=== PATIENT | female | born 1945 | race Caucasian/White ===

== ENCOUNTER 2024-12-30 15:29 | Inpatient (IN) | payer MEDICARE ==
[~2024-12-30] VITALS: Ht 154.9 cm; Wt 79.4 kg
[2024-12-30] MEDS ORDERED: LIDO1ADH82 TP (15:49)
[2024-12-30] MEDS ORDERED: ESTR42.53 VG (15:49)
[2024-12-30] MEDS ORDERED: ATOR40TA PO (15:49)
[2024-12-30] MEDS ORDERED: CALC500T89 PO (15:49)
[2024-12-30] MEDS ORDERED: ACET-2605 PO (15:49)
[2024-12-30] MEDS ORDERED: ESCI10TA PO (15:49)
[2024-12-30] MEDS ORDERED: UBID200C35 PO (15:49)
[2024-12-30] MEDS ORDERED: SODI45SP5 EA NOSTRIL ×2 (15:49→18:20)
[2024-12-30 16:00] VITALS: BP 150/78
[2024-12-30 16:02] LABS: PLATELET COUNT (AUTO) 184 K/uL (179-408); RED BLOOD CELL COUNT(AUTO) 4.41 MIL/uL (3.63-4.92); RED CELL DISTRIBUTION WIDTH 15.0 % (12.3-17.7); WHITE BLOOD COUNT (AUTO) 6.5 K/uL (3.8-11.8)
[2024-12-30 16:09] LABS: CREATININE 0.7 mg/dL (0.6-1.3); SODIUM SERUM 141 mmol/L (136-145); UREA NITROGEN, BLOOD 23 mg/dL (7-18)
[2024-12-30 16:15] LABS: ETHANOL < 3 MG/DL (0-10)
[2024-12-30 16:28] LABS: ASPARTATE AMINOTRANSFERASE 23 U/L (15-37); TOTAL PROTEIN, SERUM 7.0 g/dL (6.4-8.2)
[2024-12-30] MEDS ORDERED: CEFTRIAXONE /D5W 50ML IVPB **ER PYXIS IV ONE ×2 (17:10→17:17)
[2024-12-30] MEDS ORDERED: AZITHROMYCIN 250 MG TABLET ONE (17:10)
[2024-12-30] MEDS: AZITHROMYCIN 250 MG TABLET PO ONE (17:26)
[2024-12-30 18:15] VITALS: BP 139/68; TEMP 99.1; O2SAT 97
[2024-12-30] MEDS ORDERED: CALC200T42 PO (18:16)
[2024-12-30] MEDS ORDERED: GEMTESA 75 MG PO (18:18)
[2024-12-30] MEDS ORDERED: LOPE2TAB25 PO (18:21)
[2024-12-30] MEDS ORDERED: GUAI-1197 PO (18:21)
[2024-12-30 19:02] LABS: *BILIRUBIN,URIN NEGATIVE (NEGATIVE); *CLARITY,URINE CLEAR (CLEAR); *COLOR,URINE YELLOW (YELLOW); *KETONES,URINE NEGATIVE (NEGATIVE); *PROTEIN,URINE TRACE (NEGATIVE); *UROBILINOGEN,URINE 0.2 E.U./dl (NORMAL); LEUKOCYTE ESTERASE ,URINE 1+ (NEGATIVE); NITRITE, URINE NEGATIVE (NEGATIVE); UGLUCOSE NEGATIVE (NEGATIVE)
[2024-12-30 19:34] LABS: *BLOOD, URINE NEGATIVE (NEGATIVE)
[2024-12-30 19:41] LABS: *AMPHETAMINE, URINE NEGATIVE (NEGATIVE); *BARBITURATE, URINE NEGATIVE (NEGATIVE); *BENZODIAZEPINE, URINE NEGATIVE (NEGATIVE); *CANNABINOID, URINE NEGATIVE (NEGATIVE); *COCCAINE, URINE NEGATIVE (NEGATIVE); *OPIATE, URINE NEGATIVE (NEGATIVE); *PHENCYCLIDINE SCREEN,URINE NEGATIVE (NEGATIVE); FENTANYL, URINE POSITIVE (NEGATIVE)
[2024-12-30 19:52] VITALS: BP 162/70; TEMP 97.5; O2SAT 96
[2024-12-30] MEDS ORDERED: ONDANSETRON 4 MG/2 ML VIAL IV PRN (21:15)
[2024-12-30] MEDS ORDERED: MAGNESIUM HYDROXIDE 30 ML LIQUID UDC PO PRN (21:15)
[2024-12-30] MEDS ORDERED: REMEDY ESSENTIAL ZINC PASTE 113 GM TP PRN (21:15)
[2024-12-30] MEDS: IV 1/2NS 1000 ML 1,000 ML IV PRN (22:02)
[2024-12-30] MEDS: ENOXAPARIN SODIUM 40 MG/0.4 ML DISP.SYRIN SQ SCH (22:03)
[2024-12-31] VITALS (7 sets, daily range): BP systolic 105–150; BP diastolic 48–75; TEMP 97.6–98.8; O2SAT 92–96
[2024-12-31 06:40] LABS: PLATELET COUNT (AUTO) 180 K/uL (179-408); RED BLOOD CELL COUNT(AUTO) 4.37 MIL/uL (3.63-4.92); RED CELL DISTRIBUTION WIDTH 14.9 % (12.3-17.7); WHITE BLOOD COUNT (AUTO) 6.9 K/uL (3.8-11.8)
[2024-12-31 06:56] LABS: CREATININE 0.6 mg/dL (0.6-1.3); SODIUM SERUM 139 mmol/L (136-145); UREA NITROGEN, BLOOD 16 mg/dL (7-18)
[2024-12-31] MEDS: PANTOPRAZOLE SODIUM 40 MG TABLET.DR PO SCH (07:04)
[2024-12-31] MEDS: ACETAMINOPHEN 325 MG TABLET PO PRN (08:29)
[2024-12-31] MEDS ORDERED: CEFTRIAXONE 500 MG VIAL IV SCH (09:00)
[2024-12-31] MEDS ORDERED: NORMAL SALINE NASAL 45 ML BOTTLE NS PRN (18:15)
[2024-12-31] MEDS ORDERED: GUAIFENESIN SUGAR FREE 100 MG/5 ML UDC PO PRN (18:15)
[2024-12-31] MEDS ORDERED: LOPERAMIDE HCL 2 MG CAPSULE PO PRN (20:30)
[2024-12-31] MEDS: ATORVASTATIN 40 MG TABLET PO SCH (20:34)
[2025-01-01 05:37] VITALS: BP 132/63; TEMP 98; O2SAT 93
[2025-01-01 06:35] LABS: PLATELET COUNT (AUTO) 163 K/uL (179-408); RED BLOOD CELL COUNT(AUTO) 4.20 MIL/uL (3.63-4.92); RED CELL DISTRIBUTION WIDTH 14.8 % (12.3-17.7); WHITE BLOOD COUNT (AUTO) 5.4 K/uL (3.8-11.8)
[2025-01-01 06:46] LABS: CREATININE 0.6 mg/dL (0.6-1.3); SODIUM SERUM 140 mmol/L (136-145); UREA NITROGEN, BLOOD 10 mg/dL (7-18)
[2025-01-01 07:55] VITALS: BP 144/58; TEMP 98; O2SAT 93
[2025-01-01] MEDS: ESCITALOPRAM OXALATE 10 MG TABLET PO SCH (08:25)
[2025-01-01] MEDS ORDERED: UBIDECARENONE 200 MG PO SCH (09:00)
[2025-01-01] MEDS ORDERED: GEMTESA 75 MG PO SCH (09:00)
[2025-01-01] MEDS ORDERED: CALCIUM CITRATE 950MG (=200 MG ELEMENTAL CALCIUM) TAB PO SCH ×2 (09:00)
[2025-01-01 11:52] VITALS: BP 122/56; TEMP 98; O2SAT 96
[2025-01-01 15:20] VITALS: BP 149/66; TEMP 97.9; O2SAT 96
[2025-01-01 19:37] VITALS: BP 125/65; TEMP 98.6; O2SAT 96
[2025-01-01 23:16] VITALS: BP 130/58; TEMP 97.9; O2SAT 92
[2025-01-02 05:29] VITALS: BP 132/52; TEMP 98.2; O2SAT 95
[2025-01-02 07:26] LABS: PLATELET COUNT (AUTO) 169 K/uL (179-408); RED BLOOD CELL COUNT(AUTO) 4.29 MIL/uL (3.63-4.92); RED CELL DISTRIBUTION WIDTH 14.6 % (12.3-17.7); WHITE BLOOD COUNT (AUTO) 5.6 K/uL (3.8-11.8)
[2025-01-02 07:40] LABS: CREATININE 0.6 mg/dL (0.6-1.3); SODIUM SERUM 141 mmol/L (136-145); UREA NITROGEN, BLOOD 7 mg/dL (7-18)
[2025-01-02 08:06] VITALS: BP 136/66; TEMP 98; O2SAT 94
[2025-01-02] MEDS ORDERED: AMOX-427 PO (10:33)
[2025-01-02 11:04] VITALS: BP 132/58; TEMP 98.5; O2SAT 94
[2025-01-02] MEDS: ENSURE ENLIVE (VAN) 240 ML LIQUID PO SCH (16:16)
[2025-01-02 16:48] VITALS: BP 131/60; TEMP 98.2; O2SAT 94
== END 2025-01-02 19:15 | DRG 177 ==
LOC: ER 15:29 → TELE3 17:58
PROVIDERS: ADMIT Student in an Organized Health Care Education/Training Program; ATTEND Student in an Organized Health Care Education/Training Program
DX: J15.69 Pneumonia due to other Gram-negative bacteria (principal); G92.9 Unspecified toxic encephalopathy; N39.0 Urinary tract infection, site not specified; R17 Unspecified jaundice; J90 Pleural effusion, not elsewhere classified; E78.5 Hyperlipidemia, unspecified; R32 Unspecified urinary incontinence; R94.6 Abnormal results of thyroid function studies; F03.90 Unspecified dementia, unspecified severity, without behavioral disturbance, psychotic disturbance, mood disturbance, and anxiety; R29.6 Repeated falls; B96.89 Other specified bacterial agents as the cause of diseases classified elsewhere; Z20.822 Contact with and (suspected) exposure to COVID-19
CPT/HCPCS: 36415; 71045; 83605; 83735; 84100; 84443; 84484; 85025; 85730; 87040; 87086; A4663; G0378; G0480; J0696; J1650; Q0144